=== PATIENT | female | born 1985 | race Caucasian/White ===

== ENCOUNTER 2023-12-01 17:44 | Emergency (ER) | payer OTHER, SELFPAY ==
[2023-12-01 17:46] VITALS: BP 136/90
--- NOTE | 2023-12-01 19:52 | ED.GENMED ---
History of Present Illness
General
Chief Complaint: Breathing Problem
Source: patient
Exam Limitations: none
Time Seen by Provider: 12/01/23 19:04
Travel History
Have you had any contact with someone who has COVID-19?: No
Do you have any symptoms of coronavirus? Fever > 100 degrees, chills, cough, shortness of breath, sore throat, loss of taste or smell, muscle aches, or headache?: No
History of Present Illness
History of Present Illness:
This is a 38 year old female that comes in with multiple complaints. States that she is not sleeping well and is fatigued. States that she has had some pain in her neck and that her left ankle started with some swelling. States that she feels like
her heart rate is elevated. States that today she was nauseated and dizzy. States that this started about a week ago and that she feels it is getting worse. States that she has had burning in her chest. Denies any fever, chills, abd pain,
vomiting, diarrhea, headache, urinary burning.
Past History
Past History
ED Past Medical History: Asthma, HTN and Hypothyroidism
ED Past Surgical History: (X 2) and Other (right facial tumor removed)
Social History
Tobacco: Smoker
Alcohol: None
Personal: Other (Seperated)
Living: with family
Review of Systems
Review of Systems
All Other Systems: ROS reviewed and negative except as documented in HPI and ROS
Constitutional: Reports no symptoms; Denies fever or chills
EENT: Reports no symptoms
Respiratory: Reports trouble breathing; Denies cough
Cardiac: Reports chest pain (Burning)
ABD/GI: Reports nausea; Denies abdominal pain, vomiting or diarrhea
: Reports no symptoms; Denies dysuria, frequency or urgency
Musculoskeletal: Reports joint pain (Left ankle swelling)
Skin: Reports no symptoms
Neurological: Reports other (Lightheaded); Denies dizzy or headache
Psychiatric: Reports no symptoms
Phy Exam
General Physical Exam
General Presentation: well appearing and no apparent distress
General age: appears stated age
General Skin: warm and dry
General Habitus: normal
General Mental: alert
General Hydration: appears well hydrated
ENT Exam
ENT Exam: TM's normal, pharynx normal and neck supple
Eye Exam
Eye Exam: EOMI
Cardiovascular Exam
Cardiovascular Exam: regular rate/rhythm, no edema, no murmur and normal peripheral pulses
Pulmonary Exam
Pulmonary Exam: lungs clear, no respiratory distress, no rales, chest non tender, no crackles, no rhonchi, no wheezing and no cough
Gastrointestinal Exam
Gastrointestinal Exam: normal bowel sounds, non tender, soft, no organomegaly, no pulsatile mass and non distended
Musculoskeletal Exam
Musculoskeletal Exam: full ROM and other (Slight left lateral ankle swelling, Tender to palpation over the Lateral Malleolus)
Skin Exam
Skin Exam: normal color, warm/dry, no rash and no petechia
Psychiatric Exam
Psychiatric Exam: normal mood/affect
Course
Orders/Labs/Results
Orders:
Orders
12/01/23 17:50
Electrocardiogram (*1) Urgent
Reason for Study: Shortness of Breath
EKG- Treatment ONCE
12/01/23 19:51
Ankle, left 3 view CR [CR Ankle - Left Min 3 Views ] Urgent
Comment:
Reason For Exam: Pain swelling
CR Chest - 2 Views Urgent
Comment:
Reason For Exam: SOB,
12/01/23 19:52
Test Result ONCE
12/01/23 19:53
0.9% Sodium Chloride 1000 ml [Nss] 1,000 ml IV BOLUS
12/01/23 19:54
Pantoprazole [Protonix IV] 40 mg IV NOW STA
12/01/23 20:07
Complete Blood Count/With Diff Urgent
Comprehensive Metabolic Panel Urgent
D-Dimer Urgent
HCG, Serum Qualitative Screen Urgent
Troponin I Urgent
12/01/23 20:09
Urinalysis Reflex To Culture Urgent
Date Specimen was Collected: 12/01/23
Time Specimen was Collected: 20:08
Abnormal Lab Results
12/01/23 12/01/23
20:07 20:09
Hct 35.3 L %
(37.0-47.0)
Absolute Monos (auto) 0.8 H 10^3/uL
(0.1-0.6)
Sodium 134 L mmol/L
(135-145)
Urine Bilirubin 1+ A
(Negative)
12/01/23 20:07
12/01/23 20:07
Sodium verly slightly low. Urine negative for infection. D-dimer 0.30, Troponin <0.012, HCG negative.
Vital Signs
Initial and Last Documented VS:
Initial Vital Signs
Temp Pulse Resp BP Pulse Ox
99.5 F 102 18 136/90 99
12/01/23 17:46 12/01/23 17:46 12/01/23 17:46 12/01/23 17:46 12/01/23 17:46
Last Documented Vital Signs
Temp Pulse Resp BP Pulse Ox
99.5 F 76 15 136/90 99
12/01/23 17:46 12/01/23 20:18 12/01/23 20:18 12/01/23 17:46 12/01/23 20:18
MDM/Problems Addressed
Differential Diagnosis Includes:
Anxiety,
MDM/Problems Addressed:
This is a 38 year old female that comes in with multiple complaints. States that she has some heart burn, SOB, nausea, lightheadedness and fatigue. States that this has been going of for a wek but feels that this is getting worse.
will check labs. X-ray
Back into see patient. Explained that her blood work is normal, D-dimer is negative, Chest x-ray is normal. Troponin is normal and urine is negative for infection. Explained to patient that thsi may all be stress related. Patient can use an Caden to
help with the ankle swelling. Follow up with the Family doctor. Return with any concerns.
Chronic conditions affecting care:
NA
Acute Exacerbation and/or Progression of Chronic Illness:
NA
*Radiology
Radiology exam reviewed: preliminary read by ED provider (Chest- Negative for active disease. Ankle- negative for fractures or dislocation. )
*Pulse Oximetry
Patient hypoxic: no
*EKG
Interpreted by ED Provider?: Yes
Heart Rate: 91
Rate: normal
Rhythm: sinus
Griffin: normal axis
Interval: normal interval
QRS Pattern: normal QRS
Ischemia: no ischemia
*Verification Lead Interpretation
Rate: Verification Lead- N/A
*Critical Care Note
Total Time (30-74mins, 75-104mins- exclusive of procedures): Not Applicable
ED Attending Note
-
Portions of this chart may have been created with voice recognition software.� Occasional wrong word or��sound alike� substitutions may have occurred due to the inherent limitations of voice recognition software.
Discharge Plan
Departure
Patient Disposition: Home (Routine Discharge)
Date of Disposition: 12/01/23
Time of Disposition: 20:58
Patient with high blood pressure during this ER visit?: Yes
Condition: Good
Covid-19: Not Applicable
Discharge Problem:
Fatigue
Instructions: Fatigue (DC), Anxiety, Adult ED, BLOOD PRESSURE
Referrals:
Jesús Medrano, [Family Provider] - Follow up in 2-3 days
Activity Restrictions/Additional Instructions:
As discussed, your blood work is normal along with your chest x-ray, Urine and your ECG. This may be all due to stress and anxiety. Please follow up with the family doctor for further evaluation. You may use the caden wrap to the left ankle to help
decrease the swelling. Ice and elevate will also help. Ibuprofen 600mg every 6 hours with food for any pain. IF YOU HAVE ANY OTHER CONCERNS PLEASE RETURN TO THE EMERGENCY ROOM.
Interventions
Interventions:
*Risk Screen - Suicide Last Done: 12/01/23 17:46
*General Assessment Last Done: 12/01/23 17:46
*Neglect/Abuse Screening Last Done: 12/01/23 17:46
ED- Fall Risk Assessment Last Done: 12/01/23 20:32
ED- Cardiac Assessment Last Done: 12/01/23 20:32
ED- Pulmonary Assessment Last Done: 12/01/23 20:32
Discharge Date and Time
Print Language: ARMENIAN
[2023-12-01 20:06] VITALS: BMI 42.3
[2023-12-01] MEDS: NSS 1000 IV (20:08)
[2023-12-01] MEDS: PROTONIX IV 40 MG IV (20:13)
[2023-12-01 20:18] LABS: % Basophils 0.4 % (0-2); % Immature Granulocytes 0.3 % (0-0.5); % Lymphocytes 31.7 % (20.5-51.1); % Monocytes 8.6 % (1.7-9.3); Absolute Eosinophils 0.2 10^3/uL (0-0.7); Absolute Lymphocytes 2.9 10^3/uL (1.2-3.4); Absolute Monocytes 0.8 10^3/uL (0.1-0.6); Absolute Neutrophils 5.2 10^3/uL (1.4-6.5); Hematocrit 35.3 % (37.0-47.0); Mean Corpuscular Hgb 28.2 pg (27.0-31.0); Mean Corpuscular Volume 82.9 fL (81.0-99.0); Mean Platelet Volume 9.4 fL (7.4-10.4); Nucleated Red Blood Cells % 0 %; Platelet Count 288 10^3/uL (130-400); Red Blood Cell Count 4.26 10^6/uL (4.20-5.40); Red Cell Dist. Width 13.9 % (11.5-14.5); White Blood Cell Count 9.1 10^3/uL (4.8-10.8)
[2023-12-01 20:21] LABS: Urine Albumin Negative (Neg - Trace); Urine Bilirubin 1+ (Negative); Urine Character Clear (Clear); Urine Color Yellow; Urine Glucose Negative (Negative); Urine Ketone Negative (Negative); Urine Leukocyte Negative (Negative); Urine Nitrite Negative (Negative); Urine Occult Blood Negative (Negative); Urine Specific Gravity 1.025 (<1.030); Urine Urobilinogen Negative (Neg - 1+)
[2023-12-01 20:37] LABS: HCG, Serum Qualitative Screen Negative
[2023-12-01 20:42] LABS: Troponin I < 0.012 ng/ml
[2023-12-01 20:43] LABS: ALT (SGPT) 13 U/L (0-35); AST (SGOT) 19 U/L (14-36); Albumin 4.3 g/dl (3.5-5.0); Alkaline Phosphatase 76 U/L (38-126); Blood Urea Nitrogen 17 mg/dl (7-17); Calcium 9.3 mg/dl (8.4-10.2); Carbon Dioxide 23 mmol/L (22-30); Chloride 105 mmol/L (98-107); Estimated Creatinine Clearance 119 ml/min; Glucose 86 mg/dl (70-99); Potassium 4.2 mmol/L (3.5-5.1); Sodium 134 mmol/L (135-145); Total Bilirubin 0.3 mg/dl (0.2-1.3); Total Protein 6.9 g/dl (6.3-8.2); eGFR > 60.00
== END 2023-12-01 21:15 | disposition home or self-care (01) ==
LOC: EMR 17:44
PROVIDERS: Clinical Nurse Specialist Family Health; EMERGENCY PHYSICIAN Emergency Medicine; FAMILY PHYSICIAN Family Medicine
DX: R53.83 Other fatigue (principal); M54.2 Cervicalgia; M25.572 Pain in left ankle and joints of left foot; M25.472 Effusion, left ankle; R11.0 Nausea; R42 Dizziness and giddiness; R07.89 Other chest pain; R12 Heartburn; I10 Essential (primary) hypertension; J45.909 Unspecified asthma, uncomplicated; E03.9 Hypothyroidism, unspecified; F17.200 Nicotine dependence, unspecified, uncomplicated; Z88.0 Allergy status to penicillin; Z88.6 Allergy status to analgesic agent; Z91.040 Latex allergy status
CPT/HCPCS: 99284; 96374; 96361; 71046; 73610; 80053; 81003; 84484; 84703; 85025; 85379; 93005

== ENCOUNTER → 2025-06-04 09:57 | Outpatient (REF) | payer OTHER, SELFPAY | LOC: HWRAD 09:57 | PROVIDERS: FAMILY PHYSICIAN Family Medicine | DX: N93.9 Abnormal uterine and vaginal bleeding, unspecified (principal) | CPT/HCPCS: 76830; 76856 ==